=== PATIENT | male | born 1955 | race Caucasian/White ===

== ENCOUNTER → 2023-08-12 06:36 | Day surgery (SDC) | payer MEDICARE, SELFPAY | LOC: GI 06:36 | PROVIDERS: ATTENDING PHYSICIAN Internal Medicine Gastroenterology; FAMILY PHYSICIAN Emergency Medicine | DX: Z12.11 Encounter for screening for malignant neoplasm of colon (principal); D12.0 Benign neoplasm of cecum; D12.2 Benign neoplasm of ascending colon; D12.4 Benign neoplasm of descending colon; K64.8 Other hemorrhoids; Z86.010 Personal history of colon polyps | CPT/HCPCS: 45385; 88305 ==

== ENCOUNTER → 2023-12-11 09:39 | Outpatient (REF) | payer MEDICARE, SELFPAY | LOC: RCS 09:39 | PROVIDERS: ATTENDING PHYSICIAN Internal Medicine Cardiovascular Disease; FAMILY PHYSICIAN Emergency Medicine | DX: I35.1 Nonrheumatic aortic (valve) insufficiency (principal) | CPT/HCPCS: 93306 ==

== ENCOUNTER → 2024-11-30 11:06 | Outpatient (REF) | payer MEDICARE, SELFPAY | LOC: RCS 11:06 | PROVIDERS: ATTENDING PHYSICIAN Internal Medicine Cardiovascular Disease; FAMILY PHYSICIAN Emergency Medicine | DX: I35.1 Nonrheumatic aortic (valve) insufficiency (principal) | CPT/HCPCS: 93306 ==